=== PATIENT | male | born 1960 | race Caucasian/White ===

== ENCOUNTER 2019-11-11 12:52 | Emergency (ER) | payer OTHER ==
[~2019-11-11] VITALS: Ht 177.8 cm; Wt 93.2 kg
[~2019-11-11 12:52] MED LIST: HYDR-4383 PO
[2019-11-11 13:42] VITALS: BP 139/91
[2019-11-11] MEDS ORDERED: METH4TAB81 PO (14:23)
[2019-11-11] MEDS ORDERED: TRIA80OI TOP (14:23)
== END 2019-11-11 14:44 | disposition home or self-care (01) ==
LOC: ER 12:52
DX: L23.9 Allergic contact dermatitis, unspecified cause (principal); I10 Essential (primary) hypertension; Z98.890 Other specified postprocedural states; Z88.0 Allergy status to penicillin; Z79.899 Other long term (current) drug therapy
CPT/HCPCS: 99283

== ENCOUNTER 2021-10-22 09:25 | Emergency (ER) | payer OTHER ==
[~2021-10-22] VITALS: Ht 177.8 cm; Wt 91.0 kg
[~2021-10-22 09:25] MED LIST changes: +METH4TAB81 PO; +TRIA80OI TOP
[2021-10-22 09:43] VITALS: BP 135/85
[2021-10-22 10:21] LABS: BASOPHILS # (AUTO) 0.1 X10'3 (0-0.2); BASOPHILS % (AUTO) 0.7 % (0-1); EOSINOPHILS # (AUTO) 0.1 X10'3 (0-0.9); EOSINOPHILS % (AUTO) 0.7 % (0-6); HEMATOCRIT 41.9 % (42.0-52.0); HEMOGLOBIN 13.9 g/dl (14.0-17.9); LYMPHOCYTES # (AUTO) 1.4 X10'3 (1.1-4.8); LYMPHOCYTES % (AUTO) 14.2 % (21-51); MEAN CORPUSCULAR HGB CONC 33.3 g/dL (33.0-36.5); MEAN CORPUSCULAR VOLUME 87.1 FL (78-98); MEAN PLATELET VOLUME 7.6 FL (7.4-10.4); MONOCYTES # (AUTO) 0.8 X10'3 (0-0.9); MONOCYTES % (AUTO) 8.6 % (2-12); NEUTROPHILS # (AUTO) 7.4 X10'3 (1.8-7.7); NEUTROPHILS % (AUTO) 75.8 % (42-75); PLATELET COUNT 566 X10'3 (140-440); RED BLOOD COUNT 4.81 X10'6 (4.70-6.10); RED CELL DISTRIBUTION WIDTH 14.3 % (11.5-14.5); WHITE BLOOD COUNT 9.7 X10'3 (4.5-11.0)
[2021-10-22 10:32] LABS: ALANINE AMINOTRANSFERASE 28 U/L (12-78); ALBUMIN 3.4 G/DL (3.4-5.0); ALBUMIN/GLOBULIN RATIO 0.8 (1.1-1.5); ALKALINE PHOSPHATASE 77 IU/L (46-116); ANION GAP 12 (8-16); ASPARTATE AMINO TRANSFERASE 20 U/L (10-37); BILIRUBIN,TOTAL 0.4 MG/DL (0.1-1.0); BLOOD UREA NITROGEN 16 MG/DL (7-18); BUN/CREATININE RATIO 14.8 (5.4-32.0); CALCIUM 9.2 MG/DL (8.5-10.1); CHLORIDE 102 MMOL/L (99-107); CREATININE 1.08 MG/DL (0.60-1.10); POTASSIUM 3.9 MMOL/L (3.5-5.1); SODIUM 140 MMOL/L (135-145); TOTAL CARBON DIOXIDE 26.1 MMOL/L (24-32); TOTAL PROTEIN 7.5 G/DL (6.4-8.2); eGFR 69 ML/MIN
[2021-10-22 10:37] LABS: GLUCOSE 97 MG/DL (70-104)
== END 2021-10-22 16:21 | disposition left against medical advice (07) ==
LOC: ER 09:26
DX: R06.02 Shortness of breath (principal); Z53.21 Procedure and treatment not carried out due to patient leaving prior to being seen by health care provider
CPT/HCPCS: 36415; 71046; 80053; 83880; 84484; 85025; 93005

== ENCOUNTER 2021-11-08 09:47 | Emergency (ER) | payer OTHER ==
[~2021-11-08] VITALS: Ht 177.8 cm; Wt 93.2 kg
[2021-11-08] MEDS ORDERED: albuterol 2.5 MG/3 ML nebule NEB ONE (10:25)
[2021-11-08] MEDS ORDERED: magnesium 2GM in 50ml NS 50 ML IV ONE (10:25)
[2021-11-08] MEDS ORDERED: methylPREDNISolone sod succ 125mg/2ml vial IV ONE (10:25)
[2021-11-08 11:35] LABS: BASOPHILS % (AUTO) 0.2 % (0-1); EOSINOPHILS # (AUTO) 0.1 X10'3 (0-0.9); EOSINOPHILS % (AUTO) 0.8 % (0-6); HEMATOCRIT 40.8 % (42.0-52.0); HEMOGLOBIN 13.3 g/dl (14.0-17.9); LYMPHOCYTES # (AUTO) 0.5 X10'3 (1.1-4.8); LYMPHOCYTES % (AUTO) 4.3 % (21-51); MEAN CORPUSCULAR HEMOGLOBIN 28.7 PG (27.0-31.0); MEAN CORPUSCULAR HGB CONC 32.7 g/dL (33.0-36.5); MEAN CORPUSCULAR VOLUME 87.9 FL (78-98); MEAN PLATELET VOLUME 7.8 FL (7.4-10.4); MONOCYTES # (AUTO) 0.6 X10'3 (0-0.9); MONOCYTES % (AUTO) 4.5 % (2-12); NEUTROPHILS # (AUTO) 11.1 X10'3 (1.8-7.7); NEUTROPHILS % (AUTO) 90.2 % (42-75); PLATELET COUNT 252 X10'3 (140-440); RED BLOOD COUNT 4.64 X10'6 (4.70-6.10); RED CELL DISTRIBUTION WIDTH 14.9 % (11.5-14.5); WHITE BLOOD COUNT 12.3 X10'3 (4.5-11.0)
[2021-11-08] MEDS ORDERED: azithromycin/NS 500mg/250ml 250 ML IV ONE (11:45)
[2021-11-08] MEDS ORDERED: CefTRIAXone 2gm/D5W 50ml BAG 50 ML IV ONE (11:45)
[2021-11-08 11:47] LABS: ALANINE AMINOTRANSFERASE 79 U/L (12-78); ALBUMIN 3.3 G/DL (3.4-5.0); ALKALINE PHOSPHATASE 74 IU/L (46-116); ANION GAP 9 (8-16); ASPARTATE AMINO TRANSFERASE 62 U/L (10-37); BILIRUBIN,TOTAL 0.9 MG/DL (0.1-1.0); BLOOD UREA NITROGEN 13 MG/DL (7-18); BUN/CREATININE RATIO 11.3 (5.4-32.0); CALCIUM 8.6 MG/DL (8.5-10.1); CHLORIDE 107 MMOL/L (99-107); CREATININE 1.15 MG/DL (0.60-1.10); POTASSIUM 3.3 MMOL/L (3.5-5.1); SODIUM 145 MMOL/L (135-145); TOTAL CARBON DIOXIDE 28.8 MMOL/L (24-32); TOTAL PROTEIN 6.7 G/DL (6.4-8.2); eGFR 64 ML/MIN
[2021-11-08 11:52] LABS: GLUCOSE 109 MG/DL (70-104)
[2021-11-08] MEDS ORDERED: LEVO750T46 PO (11:52)
[2021-11-08] MEDS ORDERED: PRED10TA23 PO (11:52)
[2021-11-08 12:25] VITALS: BP 149/98
--- NOTE | 2021-11-08 15:52 | NUR ---
Patient called ER back stating that levaquin, was not sent to the pharmacy just the prednisone. Called [facility] in [place] at which pharmacist confirmed what patient had stated. Gave verbal order for levaquin as ordered per Hermann VILLEGAS. Addendum: 11/08/21 at 1554 by HKISER Called patient back, Patient aware of new prescription.
== END 2021-11-08 15:11 | disposition left against medical advice (07) ==
LOC: ER 09:47
DX: J18.9 Pneumonia, unspecified organism (principal); J44.1 Chronic obstructive pulmonary disease with (acute) exacerbation; J96.90 Respiratory failure, unspecified, unspecified whether with hypoxia or hypercapnia; I10 Essential (primary) hypertension; Z72.89 Other problems related to lifestyle; Z88.1 Allergy status to other antibiotic agents; Z79.2 Long term (current) use of antibiotics; Z79.899 Other long term (current) drug therapy
CPT/HCPCS: 36415; 71045; 80053; 83880; 84145; 85025; 93005; 94640; 96365; 96366; 96367; 96368; 96375; 99285; J0456; J0696; J2930; J3475; 94760

== ENCOUNTER 2021-11-11 05:47 | Emergency (ER) | payer OTHER ==
[~2021-11-11] VITALS: Ht 154.9 cm; Wt 90.9 kg
[~2021-11-11 05:47] MED LIST changes: +LEVO750T46 PO; +PRED10TA23 PO
[2021-11-11] MEDS ORDERED: methylPREDNISolone sod succ 125mg/2ml vial IV ONE (06:00)
[2021-11-11] MEDS ORDERED: albuterol 2.5 MG/3 ML nebule CONTNEB PRN (06:00)
[2021-11-11] MEDS ORDERED: ipratropium 0.5 MG/2.5ML nebule IH ONE (06:00)
[2021-11-11] MEDS ORDERED: furosemide 10 MG/1 ML 10ml inj IV ONE (06:25)
[2021-11-11 07:13] LABS: BASOPHILS % (AUTO) 0.1 % (0-1); EOSINOPHILS % (AUTO) 0.1 % (0-6); HEMOGLOBIN 13.6 g/dl (14.0-17.9); LYMPHOCYTES # (AUTO) 1.8 X10'3 (1.1-4.8); LYMPHOCYTES % (AUTO) 13.2 % (21-51); MEAN CORPUSCULAR HEMOGLOBIN 28.6 PG (27.0-31.0); MEAN CORPUSCULAR HGB CONC 32.3 g/dL (33.0-36.5); MEAN CORPUSCULAR VOLUME 88.3 FL (78-98); MEAN PLATELET VOLUME 7.6 FL (7.4-10.4); MONOCYTES % (AUTO) 6.9 % (2-12); NEUTROPHILS % (AUTO) 79.7 % (42-75); PLATELET COUNT 341 X10'3 (140-440); RED BLOOD COUNT 4.75 X10'6 (4.70-6.10); RED CELL DISTRIBUTION WIDTH 15.8 % (11.5-14.5); WHITE BLOOD COUNT 13.8 X10'3 (4.5-11.0)
[2021-11-11 07:51] LABS: ALANINE AMINOTRANSFERASE 70 U/L (12-78); ALBUMIN 3.3 G/DL (3.4-5.0); ALBUMIN/GLOBULIN RATIO 0.8 (1.1-1.5); ALKALINE PHOSPHATASE 66 IU/L (46-116); ANION GAP 10 (8-16); ASPARTATE AMINO TRANSFERASE 37 U/L (10-37); BILIRUBIN,TOTAL 0.6 MG/DL (0.1-1.0); BLOOD UREA NITROGEN 17 MG/DL (7-18); BUN/CREATININE RATIO 15.9 (5.4-32.0); CALCIUM 8.5 MG/DL (8.5-10.1); CHLORIDE 104 MMOL/L (99-107); CREATININE 1.07 MG/DL (0.60-1.10); POTASSIUM 3.7 MMOL/L (3.5-5.1); SODIUM 142 MMOL/L (135-145); TOTAL CARBON DIOXIDE 28.5 MMOL/L (24-32); TOTAL PROTEIN 7.2 G/DL (6.4-8.2); eGFR 70 ML/MIN
[2021-11-11 07:55] LABS: GLUCOSE 165 MG/DL (70-104)
[2021-11-11 08:00] LABS: MAGNESIUM 2.1 MG/DL (1.5-2.4)
[2021-11-11] MEDS ORDERED: CefTRIAXone 2gm/D5W 50ml BAG 50 ML IV ONE (08:40)
[2021-11-11 08:56] VITALS: BP 141/84
[2021-11-11 08:57] LABS: CLARITY,URINE CLEAR (Clear); GLUCOSE, URINE NEGATIVE (Neg); KETONES,URINE NEGATIVE (Neg); LEUKOCYTE ESTERASE ,URINE NEGATIVE (Neg); NITRITES, URINE NEGATIVE (Neg); OCCULT BLOOD,URINE NEGATIVE (Neg); PROTEIN,URINE NEGATIVE (Neg); UROBILINOGEN,URINE 0.2 E.U/dL (0.2-1.0)
[2021-11-11 09:07] LABS: COLOR,URINE STRAW (Yellow); UA COLLECTION TYPE NON-SPECIFIED
[2021-11-11] MEDS ORDERED: CEPH-585 PO (09:08)
== END 2021-11-11 09:22 | disposition left against medical advice (07) ==
LOC: ER 05:47
DX: J96.00 Acute respiratory failure, unspecified whether with hypoxia or hypercapnia (principal); Z20.822 Contact with and (suspected) exposure to COVID-19; J44.1 Chronic obstructive pulmonary disease with (acute) exacerbation; A41.9 Sepsis, unspecified organism; I11.0 Hypertensive heart disease with heart failure; I50.9 Heart failure, unspecified; Z72.89 Other problems related to lifestyle; F17.210 Nicotine dependence, cigarettes, uncomplicated; Z88.1 Allergy status to other antibiotic agents; Z79.2 Long term (current) use of antibiotics; Z79.899 Other long term (current) drug therapy; Z87.01 Personal history of pneumonia (recurrent)
CPT/HCPCS: 36415; 71045; 80053; 81003; 83605; 83735; 83880; 84145; 84484; 85025; 87040; 87635; 93005; 94644; 96365; 96375; 99285; C9803; J0696; J1940; J2930; 94640; 94760; 96366; A7015

== ENCOUNTER 2021-12-03 06:43 | Emergency (ER) | payer OTHER ==
[~2021-12-03] VITALS: Ht 177.8 cm; Wt 93.2 kg
[~2021-12-03 06:43] MED LIST changes: +CEPH-585 PO; -LEVO750T46 PO
[2021-12-03] MEDS ORDERED: ipratropium/albuterol 3ml nebule NEB ONE (07:20)
[2021-12-03] MEDS ORDERED: methylPREDNISolone sod succ 125mg/2ml vial IV ONE (07:20)
[2021-12-03] MEDS ORDERED: normal saline 1000ML IV soln IV ONE (07:20)
[2021-12-03] MEDS ORDERED: CefTRIAXone 2gm/D5W 50ml BAG 50 ML IV ONE (07:20)
[2021-12-03] MEDS ORDERED: albuterol 2.5 MG/3 ML nebule NEB ONE (07:20)
[2021-12-03 08:01] LABS: BASOPHILS % (AUTO) 0.3 % (0-1); EOSINOPHILS # (AUTO) 0.3 X10'3 (0-0.9); EOSINOPHILS % (AUTO) 2.8 % (0-6); HEMATOCRIT 41.6 % (42.0-52.0); HEMOGLOBIN 13.6 g/dl (14.0-17.9); LYMPHOCYTES # (AUTO) 0.6 X10'3 (1.1-4.8); MEAN CORPUSCULAR HEMOGLOBIN 28.2 PG (27.0-31.0); MEAN CORPUSCULAR HGB CONC 32.7 g/dL (33.0-36.5); MEAN PLATELET VOLUME 7.6 FL (7.4-10.4); MONOCYTES # (AUTO) 0.8 X10'3 (0-0.9); MONOCYTES % (AUTO) 8.6 % (2-12); NEUTROPHILS # (AUTO) 7.3 X10'3 (1.8-7.7); NEUTROPHILS % (AUTO) 81.3 % (42-75); PLATELET COUNT 339 X10'3 (140-440); RED BLOOD COUNT 4.83 X10'6 (4.70-6.10); RED CELL DISTRIBUTION WIDTH 15.3 % (11.5-14.5)
--- NOTE | 2021-12-03 08:17 | NUR ---
RT at bedside at this time to administer medication as ordered (see EMAR).
[2021-12-03 08:22] LABS: ALANINE AMINOTRANSFERASE 26 U/L (12-78); ALBUMIN 4.1 G/DL (3.4-5.0); ALBUMIN/GLOBULIN RATIO 1.2 (1.1-1.5); ALKALINE PHOSPHATASE 88 IU/L (46-116); ANION GAP 11 (8-16); ASPARTATE AMINO TRANSFERASE 24 U/L (10-37); BILIRUBIN,TOTAL 1.1 MG/DL (0.1-1.0); BLOOD UREA NITROGEN 10 MG/DL (7-18); BUN/CREATININE RATIO 10.9 (5.4-32.0); CALCIUM 9.2 MG/DL (8.5-10.1); CHLORIDE 103 MMOL/L (99-107); CREATININE 0.92 MG/DL (0.60-1.10); POTASSIUM 4.2 MMOL/L (3.5-5.1); SODIUM 140 MMOL/L (135-145); TOTAL CARBON DIOXIDE 26.5 MMOL/L (24-32); TOTAL PROTEIN 7.5 G/DL (6.4-8.2); eGFR 83 ML/MIN
[2021-12-03 08:30] LABS: GLUCOSE 92 MG/DL (70-104)
[2021-12-03] MEDS ORDERED: AZIT250T2 PO (08:57)
[2021-12-03] MEDS ORDERED: PRED20TA PO (08:57)
[2021-12-03 09:33] VITALS: BP 122/88
== END 2021-12-03 09:41 | disposition home or self-care (01) ==
LOC: ER 06:44
DX: J44.1 Chronic obstructive pulmonary disease with (acute) exacerbation (principal); R06.02 Shortness of breath; R05.9 Cough, unspecified; R00.0 Tachycardia, unspecified; I10 Essential (primary) hypertension; J44.9 Chronic obstructive pulmonary disease, unspecified; F17.200 Nicotine dependence, unspecified, uncomplicated; Z98.890 Other specified postprocedural states; Z72.89 Other problems related to lifestyle; Z88.1 Allergy status to other antibiotic agents; Z79.2 Long term (current) use of antibiotics; Z79.899 Other long term (current) drug therapy
CPT/HCPCS: 36415; 71045; 80053; 83605; 83880; 84145; 85025; 87040; 93005; 94640; 96365; 96375; 99285; J0696; J2930; J7030

== ENCOUNTER 2023-11-30 09:10 | Emergency (ER) | payer OTHER ==
[~2023-11-30] VITALS: Ht 177.8 cm; Wt 107.8 kg
[~2023-11-30 09:10] MED LIST changes: -CEPH-585 PO; -PRED10TA23 PO
[2023-11-30 09:25] VITALS: TEMP 97.6
[2023-11-30 10:16] LABS: BASOPHILS % (AUTO) 0.5 % (0-1); EOSINOPHILS # (AUTO) 0.3 X10'3 (0-0.9); EOSINOPHILS % (AUTO) 3.8 % (0-6); HEMATOCRIT 45.2 % (42.0-52.0); HEMOGLOBIN 15.1 g/dl (14.0-17.9); LYMPHOCYTES # (AUTO) 1.3 X10'3 (1.1-4.8); LYMPHOCYTES % (AUTO) 19.6 % (21-51); MEAN CORPUSCULAR HEMOGLOBIN 31.5 PG (27.0-31.0); MEAN CORPUSCULAR HGB CONC 33.5 g/dL (33.0-36.5); MEAN CORPUSCULAR VOLUME 94.1 FL (78-98); MEAN PLATELET VOLUME 7.7 FL (7.4-10.4); MONOCYTES # (AUTO) 0.7 X10'3 (0-0.9); MONOCYTES % (AUTO) 10.3 % (2-12); NEUTROPHILS # (AUTO) 4.4 X10'3 (1.8-7.7); NEUTROPHILS % (AUTO) 65.8 % (42-75); PLATELET COUNT 351 X10'3 (140-440); RED CELL DISTRIBUTION WIDTH 15.2 % (11.5-14.5); WHITE BLOOD COUNT 6.7 X10'3 (4.5-11.0)
[2023-11-30 10:37] LABS: ANION GAP 12 (8-16); BLOOD UREA NITROGEN 6 MG/DL (7-18); BUN/CREATININE RATIO 7.1 (10.0-20.0); CALCIUM 8.7 MG/DL (8.5-10.1); CHLORIDE 106 MMOL/L (99-107); CREATININE 0.85 MG/DL (0.60-1.10); POTASSIUM 3.4 MMOL/L (3.5-5.1); PRO BRAIN NATRIURETIC PEPTIDE 104 PG/ML (0-125); SODIUM 146 MMOL/L (135-145); eCRCL 89 ML/MIN; eGFR 90 ML/MIN
[2023-11-30] MEDS ORDERED: HYDR12.55 PO (10:47)
[2023-11-30 11:13] LABS: GLUCOSE 85 MG/DL (70-104)
[2023-11-30 11:16] VITALS: BP 153/98; PULSE 106; RESP 20; O2SAT 94
[2023-11-30] MEDS: furosemide 20MG tablet PO ONE (11:19)
== END 2023-11-30 11:57 | disposition home or self-care (01) ==
LOC: ER 09:10
DX: R60.9 Edema, unspecified (principal); I10 Essential (primary) hypertension; J44.9 Chronic obstructive pulmonary disease, unspecified; Z88.1 Allergy status to other antibiotic agents; Z79.899 Other long term (current) drug therapy
CPT/HCPCS: 36415; 71045; 80048; 83880; 84484; 85025; 93005; 99285

== ENCOUNTER 2024-06-08 13:07 | Emergency (ER) | payer OTHER, MEDICARE ==
[~2024-06-08] VITALS: Ht 177.8 cm; Wt 108.2 kg
[~2024-06-08 13:07] MED LIST changes: +HYDR12.55 PO; +LANS30CA37 PO
[2024-06-08 13:09] VITALS: BP 148/111; PULSE 105; RESP 18; TEMP 97.9; O2SAT 9
--- NOTE | 2024-06-09 10:44 | NUR ---
SPOKE WITH PT, HE TALKED TO HIS PMD AND HIS NEW BP MEDS SHOULD BE COMING IN THE MAIL.
== END 2024-06-08 15:49 | disposition left against medical advice (07) ==
LOC: ER 13:07
DX: I10 Essential (primary) hypertension (principal); Z53.21 Procedure and treatment not carried out due to patient leaving prior to being seen by health care provider; Z88.1 Allergy status to other antibiotic agents
CPT/HCPCS: 93005

== ENCOUNTER 2025-05-26 05:31 | Emergency (ER) | payer OTHER, MEDICARE ==
[~2025-05-26] VITALS: Ht 177.8 cm; Wt 89.7 kg
[2025-05-26 05:42] VITALS: TEMP 96.3
--- NOTE | 2025-05-26 06:48 | Physician Documentation ---
History of Present Illness General Chief Complaint: Shortness of Breath Stated Complaint: SOB Time Seen by MD: 06:12 Primary Medical Doctor: FARHANA History of Present Illness Initial Comments The patient is a 65-year-old male who presents to the emergency room with shortness of breath and times last three days. The patient states he has a history of pneumonia and is some is similar to pneumonia in the past. The patient states he has a history of COPD and uses inhalers. The patient states he has had cough and he has had greenish kramer sputum. He denies any fevers or chills. The patient denies any chest pain. Patient denies any significant cardiac history the patient's symptoms are moderate and persistent. Medication Reconciliation Allergies: Coded Allergies: amoxicillin (Verified Allergy, Intermediate, 05/26/25) Scheduled Azithromycin (Zithromax), 1 TAB PO DAILY Hydrochlorothiazide (Hydrochlorothiazide), 1 TAB PO DAILY Lansoprazole (Prevacid), 1 CAP PO DAILY Methylprednisolone (Medrol Dosepak), 4 MG PO DAILY Prednisone* (Prednisone*), 2 TAB PO DAILY Triamcinolone Acetonide (Triamcinolone Acetonide), 1 APPLIC TOP TID Scheduled PRN Hydrocodone/Acetaminophen (Sumpter 5-325 Tablet), 1 TAB PO TID PRN PRN for pain Past Medical History Past Medical History: Hypertension, COPD, Hernia Past Surgical History: orthopedic surgeries, other Smoking: Cigarettes, Less than 1 pack/day Alcohol Use: Abuse Drug Use: none Lives with: S/O Lives In: Home Occupation: employed Review of Systems All Other Systems at this time: Reviewed and Negative Physical Exam Physical Exam Vital Signs: Temperature: 96.3, Source: Temporal, Heart Rate: 65, Respiratory Rate: 17, BP: 100/67, Pulse Oximetry: 95, Weight: 89.700 Physical Exam VITALS: Reviewed and as above. GENERAL: Alert, no apparent distress. HEENT: Normocephalic, atraumatic, PERRL, EOMI, dry mucosa, no erythema RESPIRATORY: Diminished breath sounds bilaterally no distress CHEST: No accessory muscle use, no retractions CV: Regular rate, rhythm, no edema, no murmur, No: JVD GI: Soft, non-tender, bowels sounds present, no rebound, guarding, or rigidity BACK: No CVA tenderness, or swelling MUSCULOSKELETAL: No deformities, no edema SKIN: Warm and dry, no rash NEURO: Oriented x4, No motor or sensory deficit PSYCH: Normal mood and affect, no agitation Progress Results/Orders Results/Orders Orders - JV DAVILA MD Svn Treatment (05/26/25 ) Completed Orders - JV DAVILA MD Procalcitonin (05/26/25 06:17) Ipratropium/Albuterol Nebule (Ipratrop/A (05/26/25 06:35) Azithromycin Tablet (Zithromax Tablet) (05/26/25 07:15) Dexamethasone Inj (Decadron 10mg/Ml Inj) (05/26/25 07:15) Potassium Cl Sr Tablet (K-Dur Tablet) (05/26/25 07:26) Vital Signs 05/26/25 05/26/25 05/26/25 05/26/25 05:42 06:47 06:59 07:04 Temp 96.3 Pulse 65 83 78 Resp 17 15 16 16 B/P (MAP) 100/67 Pulse Ox 95 95 99 O2 Delivery Room Air* Room Air* O2 Flow Rate 0 0 FiO2 21 21 05/26/25 07:49 Pulse 62 Resp 16 B/P (MAP) 116/63 Pulse Ox 98 Laboratory Tests Test 05/26/25 06:42 White Blood Count 9.3 Red Blood Count 4.53 L Hemoglobin 14.5 Hematocrit 43.3 Mean Corpuscular Volume 95.7 Mean Corpuscular Hemoglobin 32.1 H Mean Corpuscular Hemoglobin Concent 33.5 Red Cell Distribution Width 14.5 Platelet Count 327 Mean Platelet Volume 7.6 Neutrophils (%) (Auto) 73.9 Lymphocytes (%) (Auto) 15.4 L Monocytes (%) (Auto) 8.3 Eosinophils (%) (Auto) 1.9 Basophils (%) (Auto) 0.5 Neutrophils # (Auto) 6.9 Lymphocytes # (Auto) 1.4 Monocytes # (Auto) 0.8 Eosinophils # (Auto) 0.2 Basophils # (Auto) 0.0 CBC Comment Sodium Level 141 Potassium Level 3.1 L Chloride Level 101 Carbon Dioxide Level 28.6 Anion Gap 11 Blood Urea Nitrogen 7 Creatinine 1.21 H Estimated GFR/1.73 m2 60 BUN/Creatinine Ratio 5.8 L Glucose Level 99 Calcium Level 8.5 Troponin I High Sensitivity 19 Pro-B-Type Natriuretic Peptide 96 Albumin 3.4 Procalcitonin < 0.05 Chemistry Comments EKG/XRAY/CT/US/VASC/MRI Chest X-Ray : Additional Comments Patient: ERNESTO CLAYTON Medical Record: [id number] [facility] : 1960, Age: 65 Sex: Male Location: ER Patient Status: REG ER Service Date/Time: 05/26/25539 Ordering Physician: SHAY PEÑA MD Exam: CHEST,SINGLE VIEW CHEST RADIOGRAPH Indication: CP Technique: Single frontal view of the chest was obtained COMPARISON: DI CHEST,SINGLE VIEW on DOS: 11/30/23, CHEST,SINGLE VIEW on DOS: 12/03/21, CHEST,SINGLE VIEW on DOS: 11/11/21, CHEST,SINGLE VIEW on DOS: 11/08/21, CHEST,TWO VIEWS on DOS: 10/22/21 FINDINGS: Lines and Tubes: None Lungs: Clear Pleura: No effusion. No pneumothorax. Cardiomediastinal contours: Unremarkable Bones: Unremarkable. Surgical anchor overlies the right humeral head. IMPRESSION: 1. No acute disease. Electronically Signed by:ARMOND SMITH MD Date & Time: 05/26/25644 Dictated by: ARMOND SMITH MD Dictation date and time: 05/26/25644 Primary Care Provider: NO PRIMARY CARE PROVIDER cc: SHAY PEÑA MD ~ Medical Decision Making Findings 65-year-old male presents with cough congestion over last five days the patient does have diminished breath sounds in the left base the patient's chest x-ray was interpreted by me as showing no acute alveolar infiltrates the patient does have a normal cardiac silhouette normal mediastinum and normal-appearing bony structures. The patient's labs were reviewed patient's previous hospitalizations have been reviewed the patient has been treated with albuterol here in the emergency room was also given a dose of azithromycin the patient is being treated for presumed walking pneumonia and bronchitis the patient will be given a prednisone he was given a dose of Decadron here in the emergency room he was also given a dose of azithromycin he will be discharged on azithromycin. Prior hospitalizations has been reviewed and all imaging was reviewed as follows his EKG was interpreted by me as being nonischemic. Patient's pulse oximetry was interpreted as adequate normal in his bus monitor was interpreted as a sinus rhythm Departure Disposition: 01 HOME / SELF CARE / HOMELESS Impression: Primary Impression: Bronchitis Discharge Instructions: Bronchitis Referrals: NO PRIMARY CARE PROVIDER (PCP) Prescriptions Prednisone* (Prednisone*) 20 Mg Tablet 2 TAB PO DAILY, #10 TAB Prov: JV DAVILA MD 05/26/25 Azithromycin (Zithromax) 250 Mg Tablet 1 TAB PO DAILY, #6 TAB azithromycin z pack as directed in packaging Prov: JV DAVILA MD 05/26/25 Signature Scribe Signature: No scribe Attestation: The note accurately reflects work and decisions made by me.Jv Davila MD 05/27/25 16:53 JV DAVILA MD May 26, 2025 06:48
[2025-05-26 06:59] VITALS: PULSE 83; RESP 16; O2SAT 95
[2025-05-26] MEDS: ipratropium/albuterol 3ml nebule NEB ONE (06:59)
[2025-05-26 07:04] VITALS: PULSE 78; RESP 16; O2SAT 99
[2025-05-26 07:06] LABS: MEAN PLATELET VOLUME 7.6 FL (7.4-10.4); RED CELL DISTRIBUTION WIDTH 14.5 % (11.5-14.5)
[2025-05-26 07:24] LABS: CREATININE 1.21 MG/DL (0.60-1.10); PRO BRAIN NATRIURETIC PEPTIDE 96 PG/ML (0-125); TOTAL CARBON DIOXIDE 28.6 MMOL/L (24-32); eCRCL 61 ML/MIN; eGFR 60 ML/MIN
[2025-05-26] MEDS ORDERED: AZIT-164 PO (07:28)
[2025-05-26] MEDS ORDERED: PRED20TA PO (07:28)
[2025-05-26] MEDS: dexamethasone sod phosphate 10mg/ml inj PO STA (07:41)
[2025-05-26] MEDS: potassium Cl 20 mEq SR tablet PO STA (07:41)
[2025-05-26 07:49] VITALS: BP 116/63; PULSE 62; RESP 16; O2SAT 98
--- NOTE | 2025-05-26 16:31 | ELECTROCARDIOGRAPH REPORT ---
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
== END 2025-05-26 07:52 | disposition home or self-care (01) ==
LOC: ER 05:32
DX: J40 Bronchitis, not specified as acute or chronic (principal); I10 Essential (primary) hypertension; J44.9 Chronic obstructive pulmonary disease, unspecified; F10.10 Alcohol abuse, uncomplicated; Z88.0 Allergy status to penicillin; Z88.8 Allergy status to other drugs, medicaments and biological substances; Y90.9 Presence of alcohol in blood, level not specified
CPT/HCPCS: 36415; 71045; 80048; 83880; 84145; 84484; 85025; 93005; 94640; 99285; J1100; 94760